=== PATIENT | female | born 1990 | race Caucasian/White ===

== ENCOUNTER 2019-08-09 18:19 | Emergency (ER) | payer BC ==
[~2019-08-09] VITALS: Ht 170.2 cm; Wt 77.1 kg
--- NOTE | 2019-08-09 18:35 | NUR ---
BIB FOR SYNCOPAL EPISODE TODAY x 2, PER "IT'S CHRONIC", LASTED FOR 5 SECONDS, DENIES INJURY OR TRAUMA. C/O SLIGHT HEADACHE, PER PATIENT, SHE FELT HEAVY BREATHING RIGHT AFTER THE EPISODE BUT WAS OK WHEN THEY REACHED THE ED. TO ER BED 13, HOOKED TO MONITOR, PROVIDED W WARM BLANKET, AWAITING MD COOK.
--- NOTE | 2019-08-09 18:38 | NUR ---
SEEN AND EXAMINED BY .
[2019-08-09 18:51] LABS: BASOPHILS # (AUTO) 0.1 /CMM (0.0-0.2); EOSINOPHILS % (AUTO) 1.1 % (0.0-6.0); HEMATOCRIT 44 % (33-45); HEMOGLOBIN 14.6 g/dL (11.5-14.8); LYMPHOCYTES # (AUTO) 2.4 /CMM (0.8-4.8); LYMPHOCYTES % (AUTO) 25.6 % (20.0-44.0); MEAN CORPUSCULAR HGB CONC 33 g/dl (31.0-36.0); MEAN CORPUSCULAR VOLUME 88 fL (82-100); MONOCYTES # (AUTO) 0.6 /CMM (0.1-1.30); MONOCYTES % (AUTO) 6.7 % (2.0-12.0); NEUTROPHILS # (AUTO) 6.1 /CMM (1.8-8.9); NEUTROPHILS % (AUTO) 65.6 % (43.0-81.0); PLATELET COUNT (AUTO) 291 /CMM (150-450); RED BLOOD CELL COUNT(AUTO) 5.04 MIL/uL (4.0-5.2); WHITE BLOOD COUNT (AUTO) 9.3 K/uL (4.3-11.0)
[2019-08-09 18:58] LABS: CALCIUM, SERUM 9.6 mg/dL (8.5-10.1); CREATININE 0.9 mg/dL (0.6-1.3); POTASSIUM 4.1 mmol/L (3.5-5.1)
--- NOTE | 2019-08-09 19:09 | NUR ---
AUDRA JHA AT BEDSIDE
--- NOTE | 2019-08-09 19:34 | NUR ---
REPORT GIVEN TO JOHN CLAY FOR [facility]
[2019-08-09 21:10] VITALS: BP 125/73
== END 2019-08-09 21:10 | disposition home or self-care (01) ==
LOC: ER 18:21
DX: S09.8XXA Other specified injuries of head, initial encounter (principal); R55 Syncope and collapse; X58.XXXA Exposure to other specified factors, initial encounter; Y93.89 Activity, other specified; Y92.89 Other specified places as the place of occurrence of the external cause; Y99.8 Other external cause status
CPT/HCPCS: 36415; 80048-TC; 85025-TC